=== PATIENT | female | born 1995 | race Caucasian/White ===

== ENCOUNTER 2017-02-05 13:42 | Observation (INO) | payer MEDICAID ==
[~2017-02-05] VITALS: Ht 166.4 cm; Wt 110.0 kg
[~2017-02-05 13:42] MED LIST: RANI75TA12 PO
[2017-02-05 14:21] VITALS: BP 116/63
[2017-02-05] MEDS ORDERED: D5%-LACTATED RINGERS 1,000 ML IV SCH ×2 (14:30→14:59)
[2017-02-05 14:49] LABS: HEMOGLOBIN 10.4 g/dL (11.7-16.4)
[2017-02-05] MEDS ORDERED: PREN1TAB60 PO (15:04)
[2017-02-05 16:41] LABS: DAU SCREEN DISCLAIMER
== END 2017-02-05 17:50 | disposition home or self-care (01) ==
LOC: LDOP 13:42 → LDIP 14:15
PROVIDERS: ADMIT Obstetrics & Gynecology Gynecology; ATTEND Obstetrics & Gynecology Gynecology
DX: O26.893 Other specified pregnancy related conditions, third trimester (principal); O99.013 Anemia complicating pregnancy, third trimester; O99.343 Other mental disorders complicating pregnancy, third trimester; F32.9 Major depressive disorder, single episode, unspecified; Z3A.35 35 weeks gestation of pregnancy; W18.30XA Fall on same level, unspecified, initial encounter; Y93.89 Activity, other specified; Y92.89 Other specified places as the place of occurrence of the external cause; Y99.8 Other external cause status
CPT/HCPCS: 36415; 59025; 76815; 80307; 81001; 85025; 87086; 96360; 96361; 99211; G0378; G0463; J7121

== ENCOUNTER 2017-03-02 05:14 | Inpatient (IN) | payer MEDICAID ==
[~2017-03-02] VITALS: Ht 165.1 cm; Wt 113.0 kg
[~2017-03-02 05:14] MED LIST changes: +PREN1TAB60 PO
[2017-03-02] MEDS ORDERED: OXYTOCIN 30U/ 0.9% NaCL 500ML 500 ML IV PRN (05:15)
[2017-03-02] MEDS: D5%-LACTATED RINGERS 1,000 ML IV SCH ×2 (05:15→13:15)
[2017-03-02] MEDS ORDERED: OXYTOCIN 30U/ 0.9% NaCL 500ML 500 ML IV ONE (05:15)
[2017-03-02] MEDS ORDERED: NEWBORN KIT ONE ×2 (05:18→12:10)
[2017-03-02] MEDS ORDERED: OXYTOCIN 30U/ 0.9% NaCL 500ML 500 ML ONE (05:18)
[2017-03-02] MEDS ORDERED: CALCIUM CARBONATE 500 MG TAB.CHEW PO PRN ×2 (05:30→13:30)
[2017-03-02] MEDS ORDERED: ONDANSETRON 2MG/ML, 2ML IVPush PRN ×2 (05:30→13:30)
[2017-03-02] MEDS ORDERED: FENTANYL PF 100 MCG/2ML IVPush PRN (05:30)
[2017-03-02] MEDS ORDERED: TERBUTALINE 1 MG/ML, 1ML IVPush PRN (05:30)
[2017-03-02] MEDS ORDERED: FENTANYL PF 100 MCG/2ML IV PRN ×2 (05:30→13:30)
[2017-03-02 05:51] VITALS: BP 122/84
[2017-03-02 06:04] LABS: HEMOGLOBIN 11.3 g/dL (11.7-16.4)
[2017-03-02 07:28] VITALS: BP 118/75
[2017-03-02] MEDS ORDERED: LIDOCAINE 1%, 20ML ONE (10:08)
[2017-03-02] MEDS ORDERED: MISOPROSTOL 200 MCG TABLET ONE (10:08)
[2017-03-02] MEDS ORDERED: FENTANYL PF 100 MCG/2ML ONE ×3 (10:08→12:09)
[2017-03-02] MEDS: LACTATED RINGERS 1,000 ML IV SCH ×6 (10:40→23:03)
[2017-03-02] MEDS ORDERED: BUPIVACAINE/PF 0.25% ONE (11:11)
[2017-03-02] MEDS ORDERED: FENTANYL/BUPIV./NS/PF 250 ML EPIDCONT ONE (11:11)
[2017-03-02] MEDS ORDERED: LACTATED RINGERS 1,000 ML IV SCH (11:54)
[2017-03-02] MEDS ORDERED: FENTANYL/BUPIV./NS/PF 250 ML EPIDCONT SCH (11:54)
[2017-03-02] MEDS ORDERED: EPHEDRINE 50 MG/ML, 1ML IVPush PRN ×2 (12:00→13:30)
[2017-03-02] MEDS ORDERED: LACTATED RINGERS 1,000 ML IVBOLUS PRN (12:00)
[2017-03-02] MEDS ORDERED: NALOXONE 0.4 MG/ML, 1ML IVPush PRN (12:00)
[2017-03-02] MEDS ORDERED: TERBUTALINE 1 MG/ML, 1ML ONE (12:04)
[2017-03-02] MEDS ORDERED: DEXAMETHASONE 4 MG/ML, 1ML ONE (12:11)
[2017-03-02] MEDS ORDERED: CEFAZOLIN 1,000 MG ONE (12:11)
[2017-03-02] MEDS ORDERED: KETOROLAC 30 MG/1 ML ONE (12:11)
[2017-03-02] MEDS ORDERED: ONDANSETRON 2MG/ML, 2ML ONE (12:11)
[2017-03-02] MEDS ORDERED: EPHEDRINE 50 MG/ML, 1ML ONE (12:11)
[2017-03-02] MEDS ORDERED: METOCLOPRAMIDE 5 MG/ML, 2ML ONE ×2 (12:11→13:27)
[2017-03-02] MEDS ORDERED: PHENYLEPHRINE 10 MG/ML ONE (12:11)
[2017-03-02] MEDS ORDERED: OXYTOCIN 10 UNITS/ML, 1ML ONE (12:11)
[2017-03-02] MEDS: OXYTOCIN 30U/ 0.9% NaCL 500ML 500 ML IV SCH ×2 (13:03→23:03)
[2017-03-02] MEDS ORDERED: OXYcodone/APAP 5/325MG TABLET PO PRN (13:30)
[2017-03-02] MEDS ORDERED: OXYcodone 5 MG/5 ML ORAL.SOL UDC PO PRN (13:30)
[2017-03-02] MEDS ORDERED: MIDAZOLAM 1 MG/ML, 2ML IV PRN (13:30)
[2017-03-02] MEDS ORDERED: HYDROcodone/APAP 7.5-325MG/15ML UDC PO PRN (13:30)
[2017-03-02] MEDS ORDERED: ALBUTEROL/IPRATROPIUM 2.5MG/0.5MG, 3 ML NPPB PRN (13:30)
[2017-03-02] MEDS ORDERED: morphine SULFATE 10 MG/ML, 1ML IVPush PRN (13:30)
[2017-03-02] MEDS ORDERED: MEPERIDINE/PF 25MG/0.5ML IVPush PRN (13:30)
[2017-03-02] MEDS ORDERED: ONDANSETRON 2MG/ML, 2ML IV PRN (13:30)
[2017-03-02] MEDS ORDERED: HYDROmorphone 1 MG/ML, 1ML IV PRN (13:30)
[2017-03-02] MEDS ORDERED: RHOGAM FROM BLOOD BANK 1 NOTE EA IM/IV ONE (13:30)
[2017-03-02] MEDS ORDERED: SIMETHICONE 80 MG CHEW TAB PO PRN (13:30)
[2017-03-02] MEDS ORDERED: DIPH,PERTUSS(ACELL),TET VAC/PF NC IM-VACC PRN (13:30)
[2017-03-02] MEDS ORDERED: MEASLES,MUMPS&RUBELLA VACC/PF 0.5 ML SQ-VACC PRN (13:30)
[2017-03-02] MEDS ORDERED: MISOPROSTOL 200 MCG TABLET PR PRN (13:30)
[2017-03-02] MEDS ORDERED: PROMETHAZINE 25 MG/ML, 1ML IV PRN (13:30)
[2017-03-02] MEDS: OXYcodone IR 5MG TABLET PO PRN ×2 (15:48→21:04)
[2017-03-02 16:00] VITALS: BP 98/65
[2017-03-02] MEDS: KETOROLAC 30 MG/1 ML IV SCH (18:08)
[2017-03-02 20:00] VITALS: BP 109/57
[2017-03-02 23:45] VITALS: BP 97/55
[2017-03-03] MEDS: KETOROLAC 30 MG/1 ML IV SCH ×5 (00:44→20:00)
[2017-03-03] MEDS: OXYcodone IR 5MG TABLET PO PRN ×6 (00:44→22:32)
[2017-03-03] MEDS: LACTATED RINGERS 1,000 ML IV SCH ×2 (02:29→02:31)
[2017-03-03] MEDS: OXYTOCIN 30U/ 0.9% NaCL 500ML 500 ML IV SCH (02:36)
[2017-03-03 05:02] VITALS: BP 94/55
[2017-03-03 08:10] VITALS: BP 100/53
[2017-03-03] MEDS: DOCUSATE 100 MG CAPSULE PO PRN ×2 (09:11→20:00)
[2017-03-03] MEDS: PRENATAL VIT/IRON/FA 1 EACH TABLET PO SCH (09:11)
[2017-03-03 20:50] VITALS: BP 94/54
[2017-03-04] MEDS: KETOROLAC 30 MG/1 ML IV SCH ×2 (01:56→07:50)
[2017-03-04] MEDS: LACTATED RINGERS 1,000 ML IV SCH ×4 (05:03→06:39)
[2017-03-04] MEDS: OXYTOCIN 30U/ 0.9% NaCL 500ML 500 ML IV SCH ×2 (05:03→06:40)
[2017-03-04] MEDS: OXYcodone IR 5MG TABLET PO PRN ×4 (05:54→19:21)
[2017-03-04 07:35] VITALS: BP 108/64
[2017-03-04] MEDS: DOCUSATE 100 MG CAPSULE PO PRN ×2 (07:50→19:21)
[2017-03-04] MEDS: PRENATAL VIT/IRON/FA 1 EACH TABLET PO SCH (09:00)
[2017-03-04 11:42] LABS: HEMOGLOBIN 9.5 g/dL (11.7-16.4)
[2017-03-04] MEDS: IBUPROFEN 600 MG TABLET PO PRN ×2 (14:44→21:33)
[2017-03-04 20:40] VITALS: BP 99/60
[2017-03-05] MEDS: OXYcodone IR 5MG TABLET PO PRN ×5 (01:18→19:52)
[2017-03-05] MEDS: IBUPROFEN 600 MG TABLET PO PRN ×3 (06:10→22:44)
[2017-03-05 06:40] VITALS: BP 104/57
[2017-03-05] MEDS: DOCUSATE 100 MG CAPSULE PO PRN ×2 (09:29→19:52)
[2017-03-05] MEDS: PRENATAL VIT/IRON/FA 1 EACH TABLET PO SCH (09:29)
[2017-03-06] MEDS: OXYcodone IR 5MG TABLET PO PRN ×4 (00:30→16:13)
[2017-03-06 08:00] VITALS: BP 111/66
[2017-03-06] MEDS: PRENATAL VIT/IRON/FA 1 EACH TABLET PO SCH (08:12)
[2017-03-06] MEDS: DOCUSATE 100 MG CAPSULE PO PRN (08:12)
[2017-03-06] MEDS: IBUPROFEN 600 MG TABLET PO PRN ×2 (08:12→14:43)
[2017-03-06] MEDS ORDERED: OXYC-302 PO (14:48)
[2017-03-06] MEDS ORDERED: IBUP-1222 PO (14:49)
== END 2017-03-06 18:51 | disposition home or self-care (01) | DRG 766 ==
LOC: LDIP 05:14 → 2NW 15:24
PROVIDERS: ADMIT Obstetrics & Gynecology Gynecology; ATTEND Obstetrics & Gynecology Gynecology
PROC: 10D00Z1 Extraction of Products of Conception, Low, Open Approach (ICD-10-PCS; principal; 2017-03-02)
DX: O76 Abnormality in fetal heart rate and rhythm complicating labor and delivery (principal); O34.211 Maternal care for low transverse scar from previous cesarean delivery; O69.81X0 Labor and delivery complicated by cord around neck, without compression, not applicable or unspecified; O69.89X0 Labor and delivery complicated by other cord complications, not applicable or unspecified; O36.63X0 Maternal care for excessive fetal growth, third trimester, not applicable or unspecified; O61.8 Other failed induction of labor; Z3A.39 39 weeks gestation of pregnancy; Z80.41 Family history of malignant neoplasm of ovary; Z37.0 Single live birth; Z82.49 Family history of ischemic heart disease and other diseases of the circulatory system; Z83.3 Family history of diabetes mellitus; Z90.89 Acquired absence of other organs; Z83.49 Family history of other endocrine, nutritional and metabolic diseases
CPT/HCPCS: 36415; 82803; 85025; 86850; 86900; J0690; J1100; J1885; J2405; J3010; J2370; J2590; J2765; J3105; J7120

== ENCOUNTER 2017-10-28 16:47 | Emergency (ER) | payer MEDICAID ==
[~2017-10-28] VITALS: Ht 165.1 cm; Wt 106.9 kg
[~2017-10-28 16:47] MED LIST changes: +IBUP-1222 PO; +OXYC-302 PO
[2017-10-28] MEDS ORDERED: SODIUM CHLORIDE 0.9% 1,000ML IVBOLUS ONE (17:30)
[2017-10-28] MEDS ORDERED: SODIUM CHLORIDE FLUSH 10ML SYR IVF ONE (17:30)
[2017-10-28 18:06] LABS: BLOOD UREA NITROGEN 10 mg/dL (7-18)
[2017-10-28 18:19] LABS: HEMATOCRIT 41.2 % (34.6-47.8); HEMOGLOBIN 13.1 g/dL (11.7-16.4); WHITE BLOOD COUNT 9.7 x10^3/uL (3.4-10)
[2017-10-28 20:33] VITALS: BP 106/65
== END 2017-10-28 20:37 | disposition home or self-care (01) ==
LOC: ED 19:06
DX: O34.81 Maternal care for other abnormalities of pelvic organs, first trimester (principal); N83.202 Unspecified ovarian cyst, left side; Z3A.01 Less than 8 weeks gestation of pregnancy
CPT/HCPCS: 36415; 76801; 80048; 81001; 82040; 84702; 85025; 87086; 96360; 96361; 99285; J7030

== ENCOUNTER 2017-11-06 15:51 | Emergency (ER) | payer MEDICAID ==
[~2017-11-06] VITALS: Ht 167.6 cm; Wt 106.0 kg
[2017-11-06 16:54] LABS: HEMATOCRIT 39.2 % (34.6-47.8); WHITE BLOOD COUNT 8.7 x10^3/uL (3.4-10)
[2017-11-06 17:06] LABS: ASPARTATE AMINO TRANSFERASE 13 U/L (15-37); BLOOD UREA NITROGEN 8 mg/dL (7-18)
[2017-11-06 17:23] LABS: IS PT STATUS REG ER OR PRE ER? YES
[2017-11-06 18:43] VITALS: BP 142/86
== END 2017-11-06 18:48 | disposition home or self-care (01) ==
LOC: ED 18:08
DX: O26.891 Other specified pregnancy related conditions, first trimester (principal); R10.33 Periumbilical pain; R07.2 Precordial pain; Z3A.01 Less than 8 weeks gestation of pregnancy
CPT/HCPCS: 36415; 71010; 80053; 81003; 83690; 83880; 84484; 84702; 85025; 93005; 99285

== ENCOUNTER 2017-12-26 18:56 | Emergency (ER) | payer MEDICAID ==
[~2017-12-26] VITALS: Ht 165.1 cm; Wt 104.8 kg
[2017-12-26 19:56] LABS: BASOPHILS # (AUTO) 0.03 x10^3/uL (0-0.1); BASOPHILS % (AUTO) 0 % (0-1); EOSINOPHILS # (AUTO) 0.04 x10^3/uL (0-0.4); EOSINOPHILS % (AUTO) 0 % (1-7); LYMPHOCYTES # (AUTO) 2.11 x10^3/uL (1-3.4); LYMPHOCYTES % (AUTO) 21 % (22-44); MD NO; MEAN CORPUSCULAR HGB CONC 32.7 g/dL (32.4-35.8); MEAN CORPUSCULAR VOLUME 82.6 fL (80-100); MEAN PLATELET VOLUME 6.8 fL (7.4-10.4); MONOCYTES # (AUTO) 0.38 x10^3/uL (0.2-0.8); MONOCYTES % (AUTO) 4 % (2-9); NEUTROPHILS # (AUTO) 7.28 x10^3/uL (1.8-6.8); NEUTROPHILS % (AUTO) 74 % (42-75); PLATELET COUNT 390 x10^3/uL (130-400); RED BLOOD COUNT 5.02 x10^6/uL (3.82-5.3); RED CELL DISTRIBUTION WIDTH 14.7 % (9.6-15.2)
[2017-12-26 20:07] LABS: ALBUMIN 2.9 g/dL (3.4-5.0); ANION GAP 7 mmol/L (5-15); CALCIUM 8.3 mg/dL (8.5-10.1); CHLORIDE 107 mmol/L (98-107); CREATININE 0.64 mg/dL (0.55-1.02)
[2017-12-26 21:20] LABS: CULTURE INDICATED? YES; MICROSCOPIC INDICATED
[2017-12-26 22:23] VITALS: BP 135/93
== END 2017-12-26 22:25 | disposition home or self-care (01) ==
LOC: ED 21:51
DX: O20.0 Threatened abortion (principal); N30.80 Other cystitis without hematuria; Z3A.13 13 weeks gestation of pregnancy
CPT/HCPCS: 36415; 76801; 80048; 81001; 82040; 84702; 85025; 86901; 87086; 99285

== ENCOUNTER 2018-01-13 13:33 | Emergency (ER) | payer MEDICAID ==
[~2018-01-13] VITALS: Ht 165.1 cm; Wt 104.1 kg
[2018-01-13] MEDS ORDERED: ONDANSETRON 2MG/ML, 2ML ONE (14:57)
[2018-01-13] MEDS ORDERED: MORPHINE SULFATE 4 MG/ML, 1ML ONE (14:57)
[2018-01-13] MEDS ORDERED: MORPHINE SULFATE 4 MG/ML, 1ML IVPush PRN (15:00)
[2018-01-13] MEDS ORDERED: ONDANSETRON 2MG/ML, 2ML IVPush ONE (15:00)
[2018-01-13] MEDS ORDERED: SODIUM CHLORIDE FLUSH 10ML SYR IVF ONE (15:00)
[2018-01-13] MEDS ORDERED: SODIUM CHLORIDE 0.9% 1,000ML IVBOLUS ONE (15:00)
[2018-01-13 15:05] LABS: BASOPHILS # (AUTO) 0.02 x10^3/uL (0-0.1); BASOPHILS % (AUTO) 0 % (0-1); EOSINOPHILS # (AUTO) 0.01 x10^3/uL (0-0.4); EOSINOPHILS % (AUTO) 0 % (1-7); LYMPHOCYTES % (AUTO) 16 % (22-44); MD NO; MEAN CORPUSCULAR HEMOGLOBIN 27.2 pg (27.0-34.8); MEAN CORPUSCULAR HGB CONC 33.3 g/dL (32.4-35.8); MEAN CORPUSCULAR VOLUME 81.6 fL (80-100); MEAN PLATELET VOLUME 7.2 fL (7.4-10.4); MONOCYTES # (AUTO) 0.41 x10^3/uL (0.2-0.8); MONOCYTES % (AUTO) 4 % (2-9); NEUTROPHILS # (AUTO) 8.24 x10^3/uL (1.8-6.8); NEUTROPHILS % (AUTO) 79 % (42-75); PLATELET COUNT 352 x10^3/uL (130-400); RED BLOOD COUNT 4.91 x10^6/uL (3.82-5.3); RED CELL DISTRIBUTION WIDTH 14.6 % (9.6-15.2)
[2018-01-13 15:16] LABS: ALANINE AMINOTRANSFERASE 15 U/L (12-78); ALBUMIN 2.8 g/dL (3.4-5.0); ANION GAP 7 mmol/L (5-15); CALCIUM 8.9 mg/dL (8.5-10.1); CHLORIDE 108 mmol/L (98-107); CREATININE 0.68 mg/dL (0.55-1.02)
[2018-01-13 15:33] LABS: ALKALINE PHOSPHATASE 96 U/L (45-117); BILIRUBIN,TOTAL 0.2 mg/dL (0.2-1.0); TOTAL PROTEIN 7.4 g/dL (6.4-8.2)
[2018-01-13 16:11] LABS: MICROSCOPIC INDICATED
[2018-01-13 16:23] LABS: CULTURE INDICATED? YES
[2018-01-13 16:52] LABS: MICROSCOPIC NOT IND
[2018-01-13 16:57] LABS: CULTURE INDICATED? NO
[2018-01-13 17:24] VITALS: BP 119/63
== END 2018-01-13 17:39 | disposition home or self-care (01) ==
LOC: ED 16:36
DX: O26.892 Other specified pregnancy related conditions, second trimester (principal); R10.2 Pelvic and perineal pain; Z90.49 Acquired absence of other specified parts of digestive tract; Z3A.17 17 weeks gestation of pregnancy
CPT/HCPCS: 36415; 76815; 80053; 81001; 81003; 84703; 85025; 87086; 96361; 96374; 96375; 99285; J2405; J7030

== ENCOUNTER 2018-01-17 15:28 | Emergency (ER) | payer MEDICAID ==
[~2018-01-17] VITALS: Ht 165.1 cm; Wt 105.0 kg
[2018-01-17 15:29] VITALS: BP 134/84
[2018-01-17 16:04] LABS: ALBUMIN 2.9 g/dL (3.4-5.0); ANION GAP 10 mmol/L (5-15); CALCIUM 8.8 mg/dL (8.5-10.1); CHLORIDE 107 mmol/L (98-107)
[2018-01-17 16:06] LABS: BASOPHILS # (AUTO) 0.04 x10^3/uL (0-0.1); BASOPHILS % (AUTO) 0 % (0-1); EOSINOPHILS # (AUTO) 0.01 x10^3/uL (0-0.4); EOSINOPHILS % (AUTO) 0 % (1-7); LYMPHOCYTES # (AUTO) 1.75 x10^3/uL (1-3.4); LYMPHOCYTES % (AUTO) 18 % (22-44); MD NO; MEAN CORPUSCULAR HEMOGLOBIN 27.1 pg (27.0-34.8); MEAN CORPUSCULAR HGB CONC 33.1 g/dL (32.4-35.8); MEAN CORPUSCULAR VOLUME 81.9 fL (80-100); MEAN PLATELET VOLUME 7.4 fL (7.4-10.4); MONOCYTES # (AUTO) 0.27 x10^3/uL (0.2-0.8); MONOCYTES % (AUTO) 3 % (2-9); NEUTROPHILS # (AUTO) 7.93 x10^3/uL (1.8-6.8); NEUTROPHILS % (AUTO) 79 % (42-75); PLATELET COUNT 362 x10^3/uL (130-400); RED BLOOD COUNT 4.89 x10^6/uL (3.82-5.3); RED CELL DISTRIBUTION WIDTH 14.7 % (9.6-15.2)
== END 2018-01-17 19:15 | disposition other institution (70) ==
LOC: ED 19:09
DX: O26.892 Other specified pregnancy related conditions, second trimester (principal); Z3A.17 17 weeks gestation of pregnancy; W01.0XXA Fall on same level from slipping, tripping and stumbling without subsequent striking against object, initial encounter; Y93.89 Activity, other specified; Y99.8 Other external cause status; Y92.89 Other specified places as the place of occurrence of the external cause
CPT/HCPCS: 36415; 76815; 80048; 82040; 85025; 99285

== ENCOUNTER 2018-02-04 15:32 | Emergency (ER) | payer MEDICAID ==
[~2018-02-04] VITALS: Ht 165.1 cm; Wt 105.3 kg
[2018-02-04 15:35] VITALS: BP 129/85
== END 2018-02-04 16:19 | disposition home or self-care (01) ==
LOC: ED 16:00
DX: O26.892 Other specified pregnancy related conditions, second trimester (principal); R10.31 Right lower quadrant pain; H92.02 Otalgia, left ear; Z90.49 Acquired absence of other specified parts of digestive tract; Z3A.19 19 weeks gestation of pregnancy
CPT/HCPCS: 99284

== ENCOUNTER 2018-02-14 14:44 | Outpatient (CLI) | payer MEDICAID ==
[~2018-02-14] VITALS: Ht 166.4 cm; Wt 109.1 kg
[2018-02-14 15:04] VITALS: BP 105/62
== END 2018-02-14 16:27 | disposition still patient (30) ==
LOC: LDOP 14:44
PROVIDERS: ATTEND Obstetrics & Gynecology Gynecology
DX: O26.892 Other specified pregnancy related conditions, second trimester (principal); R10.9 Unspecified abdominal pain; Z3A.00 Weeks of gestation of pregnancy not specified
CPT/HCPCS: 59025; 99211; G0463

== ENCOUNTER 2018-02-14 15:47 | Emergency (ER) | payer MEDICAID ==
[~2018-02-14] VITALS: Ht 167.6 cm; Wt 110.0 kg
[2018-02-14 16:29] LABS: BASOPHILS # (AUTO) 0.04 x10^3/uL (0-0.1); BASOPHILS % (AUTO) 0 % (0-1); EOSINOPHILS # (AUTO) 0.01 x10^3/uL (0-0.4); EOSINOPHILS % (AUTO) 0 % (1-7); LYMPHOCYTES # (AUTO) 1.67 x10^3/uL (1-3.4); LYMPHOCYTES % (AUTO) 16 % (22-44); MD NO; MEAN CORPUSCULAR HEMOGLOBIN 26.8 pg (27.0-34.8); MEAN CORPUSCULAR HGB CONC 32.9 g/dL (32.4-35.8); MEAN CORPUSCULAR VOLUME 81.4 fL (80-100); MEAN PLATELET VOLUME 7.2 fL (7.4-10.4); MONOCYTES # (AUTO) 0.42 x10^3/uL (0.2-0.8); MONOCYTES % (AUTO) 4 % (2-9); NEUTROPHILS # (AUTO) 8.21 x10^3/uL (1.8-6.8); NEUTROPHILS % (AUTO) 79 % (42-75); PLATELET COUNT 372 x10^3/uL (130-400); RED BLOOD COUNT 4.38 x10^6/uL (3.82-5.3); RED CELL DISTRIBUTION WIDTH 15.2 % (9.6-15.2)
[2018-02-14 16:34] LABS: ALBUMIN 2.6 g/dL (3.4-5.0); ANION GAP 6 mmol/L (5-15); CALCIUM 8.5 mg/dL (8.5-10.1); CHLORIDE 108 mmol/L (98-107)
[2018-02-14 16:38] LABS: ALANINE AMINOTRANSFERASE 15 U/L (12-78); ALKALINE PHOSPHATASE 87 U/L (45-117); BILIRUBIN,TOTAL 0.2 mg/dL (0.2-1.0); CREATININE 0.76 mg/dL (0.55-1.02); TOTAL PROTEIN 6.7 g/dL (6.4-8.2)
[2018-02-14 18:07] VITALS: BP 103/61
== END 2018-02-14 18:09 | disposition home or self-care (01) ==
LOC: ED 16:09
DX: O26.892 Other specified pregnancy related conditions, second trimester (principal); O99.612 Diseases of the digestive system complicating pregnancy, second trimester; Z3A.20 20 weeks gestation of pregnancy
CPT/HCPCS: 36415; 76700; 80053; 83690; 85025; 99285

== ENCOUNTER 2018-03-22 17:22 | Outpatient (CLI) | payer MEDICAID ==
[~2018-03-22] VITALS: Ht 165.1 cm; Wt 106.3 kg
[2018-03-22 18:42] LABS: AMPHETAMINE SCREEN, URINE Negative (Negative); BARBITURATE SCREEN, URINE Negative (Negative); BENZODIAZEPINE SCREEN, URINE Negative (Negative); CANNABINOID SCREEN, URINE Negative (Negative); COCAINE SCREEN, URINE Negative (Negative); METHADONE SCREEN, URINE Negative (Negative); OPIATE SCREEN, URINE Negative (Negative)
== END 2018-03-22 19:21 | disposition home or self-care (01) ==
LOC: LDOP 17:22
PROVIDERS: ATTEND Obstetrics & Gynecology Gynecology
DX: O36.8120 Decreased fetal movements, second trimester, not applicable or unspecified (principal); Z3A.26 26 weeks gestation of pregnancy
CPT/HCPCS: 59025; 80307; 99211; G0463

== ENCOUNTER 2018-04-21 13:44 | Emergency (ER) | payer MEDICAID ==
[~2018-04-21] VITALS: Ht 167.6 cm; Wt 108.2 kg
[2018-04-21 13:45] VITALS: BP 109/73
[2018-04-21] MEDS ORDERED: PROPARACAINE OPHTH 0.5%, 15ML ONE (14:01)
[2018-04-21] MEDS ORDERED: FLUORESCEIN OPHTHALMIC 1 MG STRIP EACHEYE ONE (14:30)
[2018-04-21] MEDS ORDERED: PROPARACAINE OPHTH 0.5%, 15ML EACHEYE ONE (14:30)
== END 2018-04-21 14:30 | disposition home or self-care (01) ==
LOC: ED 14:20
DX: S05.01XA Injury of conjunctiva and corneal abrasion without foreign body, right eye, initial encounter (principal); X58.XXXA Exposure to other specified factors, initial encounter; Y93.89 Activity, other specified; Y92.89 Other specified places as the place of occurrence of the external cause; Y99.8 Other external cause status
CPT/HCPCS: 99283

== ENCOUNTER 2018-05-10 16:28 | Outpatient (CLI) | payer MEDICAID ==
[2018-05-10 16:39] VITALS: BP 108/71
[2018-05-10] MEDS ORDERED: TERBUTALINE 1 MG/ML, 1ML ONE (17:09)
[2018-05-10] MEDS ORDERED: TERBUTALINE 1 MG/ML, 1ML SQ ONE (17:30)
[2018-05-10 17:31] LABS: MICROSCOPIC INDICATED
[2018-05-10 17:32] LABS: CULTURE INDICATED? YES
== END 2018-05-10 19:05 | disposition home or self-care (01) ==
LOC: LDOP 16:28
PROVIDERS: ATTEND Obstetrics & Gynecology Gynecology
DX: O36.8130 Decreased fetal movements, third trimester, not applicable or unspecified (principal); Z3A.33 33 weeks gestation of pregnancy
CPT/HCPCS: 36415; 59025; 81001; 82731; 87086; 99211; J3105; G0463

== ENCOUNTER 2018-06-04 14:49 | Observation (INO) | payer MEDICAID ==
[~2018-06-04] VITALS: Ht 165.1 cm; Wt 109.0 kg
[2018-06-04 15:25] VITALS: BP 111/66
[2018-06-04] MEDS ORDERED: D5%-LACTATED RINGERS 1,000 ML IV SCH (16:06)
[2018-06-04 16:30] LABS: BASOPHILS # (AUTO) 0.04 x10^3/uL (0-0.1); BASOPHILS % (AUTO) 0 % (0-1); EOSINOPHILS # (AUTO) 0.04 x10^3/uL (0-0.4); EOSINOPHILS % (AUTO) 0 % (1-7); LYMPHOCYTES # (AUTO) 1.46 x10^3/uL (1-3.4); LYMPHOCYTES % (AUTO) 15 % (22-44); MD NO; MEAN CORPUSCULAR HEMOGLOBIN 23.7 pg (27.0-34.8); MEAN CORPUSCULAR HGB CONC 32.2 g/dL (32.4-35.8); MEAN CORPUSCULAR VOLUME 73.5 fL (80-100); MEAN PLATELET VOLUME 7.9 fL (7.4-10.4); MONOCYTES # (AUTO) 0.45 x10^3/uL (0.2-0.8); MONOCYTES % (AUTO) 5 % (2-9); NEUTROPHILS % (AUTO) 79 % (42-75); PLATELET COUNT 315 x10^3/uL (130-400); RED BLOOD COUNT 4.47 x10^6/uL (3.82-5.3); RED CELL DISTRIBUTION WIDTH 15.7 % (9.6-15.2)
[2018-06-04] MEDS ORDERED: LACTATED RINGERS 1,000 ML IVBOLUS ONE (19:00)
[2018-06-04 20:07] LABS: AMPHETAMINE SCREEN, URINE Negative (Negative); BARBITURATE SCREEN, URINE Negative (Negative); BENZODIAZEPINE SCREEN, URINE Negative (Negative); CANNABINOID SCREEN, URINE Negative (Negative); COCAINE SCREEN, URINE Negative (Negative); METHADONE SCREEN, URINE Negative (Negative); OPIATE SCREEN, URINE Negative (Negative)
[2018-06-04 20:10] LABS: MICROSCOPIC INDICATED
[2018-06-04 20:11] LABS: CULTURE INDICATED? YES
== END 2018-06-04 20:50 | disposition home or self-care (01) ==
LOC: LDOP 14:49 → LDIP 16:44
PROVIDERS: ADMIT Obstetrics & Gynecology Gynecology; ATTEND Obstetrics & Gynecology Gynecology
DX: O99.343 Other mental disorders complicating pregnancy, third trimester (principal); F32.9 Major depressive disorder, single episode, unspecified; Z3A.36 36 weeks gestation of pregnancy; Z79.899 Other long term (current) drug therapy
CPT/HCPCS: 36415; 59025; 80307; 81001; 85025; 87086; 96360; 96361; G0378; J7120; J7121

== ENCOUNTER 2018-06-12 21:14 | Outpatient (CLI) | payer MEDICAID ==
[~2018-06-12] VITALS: Ht 165.1 cm; Wt 108.6 kg
== END 2018-06-12 22:25 | disposition home or self-care (01) ==
LOC: LDOP 21:14
PROVIDERS: ATTEND Obstetrics & Gynecology Gynecology
DX: O42.92 Full-term premature rupture of membranes, unspecified as to length of time between rupture and onset of labor (principal); Z3A.37 37 weeks gestation of pregnancy
CPT/HCPCS: 59025; 89060; 99211; G0463; Q0114

== ENCOUNTER 2018-06-13 14:36 | Inpatient (IN) | payer MEDICAID ==
[~2018-06-13] VITALS: Ht 165.1 cm; Wt 110.0 kg
[2018-06-13] MEDS ORDERED: FENTANYL PF 100 MCG/2ML IV PRN (15:00)
[2018-06-13] MEDS ORDERED: TERBUTALINE 1 MG/ML, 1ML IVPush PRN (15:00)
[2018-06-13] MEDS ORDERED: FENTANYL PF 100 MCG/2ML IVPush PRN (15:00)
[2018-06-13] MEDS ORDERED: OXYTOCIN 30U/ 0.9% NaCL 500ML 500 ML IV ONE (15:00)
[2018-06-13] MEDS: D5%-LACTATED RINGERS 1,000 ML IV SCH ×2 (15:00→23:00)
[2018-06-13] MEDS ORDERED: ONDANSETRON 2MG/ML, 2ML IVPush PRN ×2 (15:00→19:00)
[2018-06-13] MEDS ORDERED: LIDOCAINE/PF 1%, 30ML ONE ×2 (15:18→15:32)
[2018-06-13] MEDS ORDERED: FENTANYL PF 100 MCG/2ML ONE ×3 (15:19→21:45)
[2018-06-13] MEDS: LACTATED RINGERS 1,000 ML IV SCH ×5 (15:19→23:27)
[2018-06-13] MEDS ORDERED: OXYTOCIN 30U/ 0.9% NaCL 500ML 0 ML ONE (15:19)
[2018-06-13] MEDS ORDERED: MISOPROSTOL 200 MCG TABLET ONE ×2 (15:19→15:32)
[2018-06-13] MEDS ORDERED: NEWBORN KIT ONE (15:31)
[2018-06-13] MEDS ORDERED: OXYTOCIN 30U/ 0.9% NaCL 500ML 500 ML ONE (15:32)
[2018-06-13 15:36] LABS: BASOPHILS # (AUTO) 0.03 x10^3/uL (0-0.1); BASOPHILS % (AUTO) 0 % (0-1); EOSINOPHILS # (AUTO) 0.01 x10^3/uL (0-0.4); EOSINOPHILS % (AUTO) 0 % (1-7); LYMPHOCYTES # (AUTO) 1.69 x10^3/uL (1-3.4); LYMPHOCYTES % (AUTO) 16 % (22-44); MD NO; MEAN CORPUSCULAR HEMOGLOBIN 24.1 pg (27.0-34.8); MEAN CORPUSCULAR HGB CONC 32.7 g/dL (32.4-35.8); MEAN CORPUSCULAR VOLUME 73.5 fL (80-100); MEAN PLATELET VOLUME 8.2 fL (7.4-10.4); MONOCYTES # (AUTO) 0.53 x10^3/uL (0.2-0.8); MONOCYTES % (AUTO) 5 % (2-9); NEUTROPHILS # (AUTO) 8.63 x10^3/uL (1.8-6.8); NEUTROPHILS % (AUTO) 79 % (42-75); PLATELET COUNT 350 x10^3/uL (130-400); RED BLOOD COUNT 4.87 x10^6/uL (3.82-5.3); RED CELL DISTRIBUTION WIDTH 16.2 % (9.6-15.2)
[2018-06-13] MEDS ORDERED: FENTANYL/BUPIV./NS/PF 250 ML EPIDCONT SCH ×2 (15:41→18:51)
[2018-06-13] MEDS ORDERED: FENTANYL PF 500 MCG, BUPIVACAINE/PF 0.5%, 30ML 62.5 ML in SODIUM CHLORIDE 0.9% 177.5 ML EPIDCONT SCH (16:30)
[2018-06-13] MEDS ORDERED: BUPIVACAINE 0.25% ONE (16:33)
[2018-06-13] MEDS ORDERED: SODIUM CITRATE/CITRIC ACID 30 ML UDC ONE ×2 (16:59→19:41)
[2018-06-13] MEDS ORDERED: SODIUM CITRATE/CITRIC ACID 30 ML UDC PO ONE ×2 (17:00→20:00)
[2018-06-13 17:59] LABS: AMPHETAMINE SCREEN, URINE Negative (Negative); BARBITURATE SCREEN, URINE Negative (Negative); BENZODIAZEPINE SCREEN, URINE Negative (Negative); CANNABINOID SCREEN, URINE Negative (Negative); COCAINE SCREEN, URINE Negative (Negative); METHADONE SCREEN, URINE Negative (Negative); OPIATE SCREEN, URINE Negative (Negative)
[2018-06-13] MEDS ORDERED: LACTATED RINGERS 1,000 ML IV SCH (18:51)
[2018-06-13] MEDS ORDERED: EPHEDRINE 50 MG/ML, 1ML IVPush PRN (19:00)
[2018-06-13] MEDS ORDERED: LACTATED RINGERS 1,000 ML INTUTE SCH (19:00)
[2018-06-13] MEDS ORDERED: LACTATED RINGERS 1,000 ML INTUTE PRN (19:00)
[2018-06-13] MEDS ORDERED: LACTATED RINGERS 1,000 ML IVBOLUS PRN (19:00)
[2018-06-13] MEDS ORDERED: METOCLOPRAMIDE 5 MG/ML, 2ML ONE (19:31)
[2018-06-13] MEDS ORDERED: OXYTOCIN 30U/ 0.9% NaCL 500ML 500 ML IV SCH (19:38)
[2018-06-13] MEDS ORDERED: METOCLOPRAMIDE 5 MG/ML, 2ML IV ONE (20:00)
[2018-06-13] MEDS ORDERED: EPHEDRINE 50 MG/ML, 1ML ONE (21:45)
[2018-06-13] MEDS ORDERED: CEFAZOLIN 1,000 MG ONE (21:45)
[2018-06-13] MEDS ORDERED: BUPIVACAINE/PF 0.25% ONE (21:45)
[2018-06-13] MEDS ORDERED: WATER-INJECTION,STERILE 10 ML IV ONE (21:45)
[2018-06-13] MEDS ORDERED: PHENYLEPHRINE 10 MG/ML ONE (21:45)
[2018-06-13] MEDS ORDERED: OXYTOCIN 10 UNITS/ML, 1ML ONE (21:45)
[2018-06-13] MEDS ORDERED: LIDOCAINE-MPF 2% ,5ML ONE (21:45)
[2018-06-13] MEDS ORDERED: morphine SULFATE/PF 0.5 MG/ML, 10ML ONE (22:37)
[2018-06-13] MEDS: OXYTOCIN 30U/ 0.9% NaCL 500ML 500 ML IV SCH (23:27)
[2018-06-13] MEDS ORDERED: METOCLOPRAMIDE 5 MG/ML, 2ML IV PRN (23:30)
[2018-06-13] MEDS ORDERED: MISOPROSTOL 200 MCG TABLET PR PRN (23:30)
[2018-06-13] MEDS ORDERED: METHYLERGONOVINE 0.2 MG/ML IM PRN (23:30)
[2018-06-13] MEDS ORDERED: ACETAMINOPHEN 325 MG TABLET PO PRN (23:30)
[2018-06-13] MEDS ORDERED: SIMETHICONE 80 MG CHEW TAB PO PRN (23:30)
[2018-06-13] MEDS ORDERED: ONDANSETRON 2MG/ML, 2ML IV PRN (23:30)
[2018-06-13] MEDS ORDERED: morphine SULFATE 10 MG/ML, 1ML IVPush PRN (23:30)
[2018-06-13] MEDS ORDERED: OXYcodone/APAP 5/325MG TABLET PO PRN (23:30)
[2018-06-13] MEDS ORDERED: BISACODYL 10 MG SUPP PR PRN (23:30)
[2018-06-13] MEDS ORDERED: CARBOPROST TROMETHAMINE 250 MCG/ML, 1ML IM PRN (23:30)
[2018-06-14] MEDS ORDERED: KETOROLAC 30 MG/1 ML ONE (00:35)
[2018-06-14] MEDS: KETOROLAC 30 MG/1 ML IV SCH ×5 (00:36→23:29)
[2018-06-14 00:52] VITALS: BP 110/57
[2018-06-14 04:00] VITALS: BP 121/82
[2018-06-14 07:02] LABS: MEAN CORPUSCULAR HGB CONC 32.6 g/dL (32.4-35.8); MEAN CORPUSCULAR VOLUME 73.7 fL (80-100); MEAN PLATELET VOLUME 7.8 fL (7.4-10.4); PLATELET COUNT 279 x10^3/uL (130-400); RED BLOOD COUNT 3.79 x10^6/uL (3.82-5.3); RED CELL DISTRIBUTION WIDTH 16.3 % (9.6-15.2)
[2018-06-14 07:25] LABS: BASOPHILS % (AUTO) 0 % (0-1); EOSINOPHILS # (AUTO) 0.01 x10^3/uL (0-0.4); EOSINOPHILS % (AUTO) 0 % (1-7); LYMPHOCYTES # (AUTO) 1.43 x10^3/uL (1-3.4); LYMPHOCYTES % (AUTO) 11 % (22-44); MD SCAN; MONOCYTES % (AUTO) 5 % (2-9); NEUTROPHILS # (AUTO) 10.64 x10^3/uL (1.8-6.8); NEUTROPHILS % (AUTO) 84 % (42-75)
[2018-06-14] MEDS: LACTATED RINGERS 1,000 ML IV SCH ×3 (07:27→15:27)
[2018-06-14] MEDS: DOCUSATE 100 MG CAPSULE PO PRN (08:42)
[2018-06-14] MEDS: PRENATAL VIT/IRON/FA 1 EACH TABLET PO SCH (08:42)
[2018-06-14 08:45] VITALS: BP 111/74
[2018-06-14] MEDS: OXYTOCIN 30U/ 0.9% NaCL 500ML 500 ML IV SCH (09:27)
[2018-06-14 13:15] VITALS: BP 114/73
[2018-06-14 16:00] VITALS: BP 111/74
[2018-06-14] MEDS: OXYcodone/APAP 5/325MG TABLET PO PRN ×2 (17:23→23:29)
[2018-06-14 19:55] VITALS: BP 106/66
[2018-06-15] MEDS: OXYcodone/APAP 5/325MG TABLET PO PRN ×4 (05:36→23:45)
[2018-06-15] MEDS: KETOROLAC 30 MG/1 ML IV SCH ×3 (05:36→17:31)
[2018-06-15] MEDS: PRENATAL VIT/IRON/FA 1 EACH TABLET PO SCH (07:56)
[2018-06-15] MEDS: DOCUSATE 100 MG CAPSULE PO PRN ×2 (07:56→23:45)
[2018-06-15 08:05] VITALS: BP 115/74
[2018-06-15] MEDS ORDERED: IBUP-1222 PO (12:30)
[2018-06-15] MEDS ORDERED: OXYC-302 PO (12:32)
[2018-06-15] MEDS ORDERED: FERR325T23 PO (12:33)
[2018-06-15 19:20] VITALS: BP 118/75
[2018-06-15] MEDS: IBUPROFEN 600 MG TABLET PO PRN (23:45)
[2018-06-16] MEDS: OXYcodone/APAP 5/325MG TABLET PO PRN ×3 (05:24→20:20)
[2018-06-16] MEDS: IBUPROFEN 600 MG TABLET PO PRN ×3 (05:24→20:20)
[2018-06-16 07:00] VITALS: BP 111/76
[2018-06-16] MEDS: PRENATAL VIT/IRON/FA 1 EACH TABLET PO SCH (09:50)
[2018-06-16] MEDS: DOCUSATE 100 MG CAPSULE PO PRN ×2 (09:50→20:21)
[2018-06-16 19:25] VITALS: BP 115/76
[2018-06-17] MEDS: OXYcodone/APAP 5/325MG TABLET PO PRN ×3 (03:14→16:46)
[2018-06-17] MEDS: IBUPROFEN 600 MG TABLET PO PRN ×3 (03:14→16:46)
[2018-06-17 08:17] VITALS: BP 106/65
[2018-06-17] MEDS: PRENATAL VIT/IRON/FA 1 EACH TABLET PO SCH (10:30)
[2018-06-17] MEDS: DOCUSATE 100 MG CAPSULE PO PRN ×2 (10:31→16:46)
== END 2018-06-17 17:00 | disposition home or self-care (01) | DRG 766 ==
LOC: LDOP 14:36 → LDIP 15:00 → 2NW 06-14 00:40
PROVIDERS: ADMIT Obstetrics & Gynecology Gynecology; ATTEND Obstetrics & Gynecology Gynecology
PROC: 10D00Z1 Extraction of Products of Conception, Low, Open Approach (ICD-10-PCS; principal; 2018-06-13)
DX: O34.211 Maternal care for low transverse scar from previous cesarean delivery (principal); O76 Abnormality in fetal heart rate and rhythm complicating labor and delivery; F32.9 Major depressive disorder, single episode, unspecified; O99.344 Other mental disorders complicating childbirth; Z3A.37 37 weeks gestation of pregnancy; Z37.0 Single live birth; Z80.41 Family history of malignant neoplasm of ovary; Z53.29 Procedure and treatment not carried out because of patient's decision for other reasons
CPT/HCPCS: 36415; 80307; 82803; 84443; 85025; 86850; 86900; 87806; 93005; J0690; J1885; J2274; J3010; J3490; G0475; J2370; J2590; J7120

== ENCOUNTER 2018-07-03 09:47 | Emergency (ER) | payer MEDICAID ==
[~2018-07-03 09:47] MED LIST changes: +FERR325T23 PO
[2018-07-03] MEDS ORDERED: SODIUM CHLORIDE FLUSH 10ML SYR IVF ONE (10:30)
[2018-07-03 11:01] LABS: BASOPHILS # (AUTO) 0.04 x10^3/uL (0-0.1); BASOPHILS % (AUTO) 1 % (0-1); EOSINOPHILS # (AUTO) 0.06 x10^3/uL (0-0.4); EOSINOPHILS % (AUTO) 1 % (1-7); LYMPHOCYTES # (AUTO) 1.86 x10^3/uL (1-3.4); LYMPHOCYTES % (AUTO) 26 % (22-44); MD NO; MEAN CORPUSCULAR HEMOGLOBIN 23.7 pg (27.0-34.8); MEAN CORPUSCULAR HGB CONC 31.9 g/dL (32.4-35.8); MEAN CORPUSCULAR VOLUME 74.3 fL (80-100); MEAN PLATELET VOLUME 7.7 fL (7.4-10.4); MONOCYTES % (AUTO) 4 % (2-9); NEUTROPHILS # (AUTO) 5.04 x10^3/uL (1.8-6.8); NEUTROPHILS % (AUTO) 69 % (42-75); PLATELET COUNT 423 x10^3/uL (130-400); RED BLOOD COUNT 5.13 x10^6/uL (3.82-5.3); RED CELL DISTRIBUTION WIDTH 17.4 % (9.6-15.2)
[2018-07-03 11:13] LABS: ALANINE AMINOTRANSFERASE 16 U/L (12-78); ALBUMIN 3.5 g/dL (3.4-5.0); ANION GAP 10 mmol/L (5-15); CALCIUM 8.5 mg/dL (8.5-10.1); CHLORIDE 109 mmol/L (98-107); CREATININE 0.92 mg/dL (0.55-1.02)
[2018-07-03 11:15] LABS: ALKALINE PHOSPHATASE 123 U/L (45-117); BILIRUBIN,TOTAL 0.3 mg/dL (0.2-1.0); D-DIMER 0.29 ug/mlFEU (0.00-0.52); INTERNATIONAL NORMALIZED RATIO 1.04 (0.93-1.1); PROTHROMBIN TIME 10.7 Seconds (9.6-11.5); TOTAL PROTEIN 7.6 g/dL (6.4-8.2)
[2018-07-03 13:05] LABS: CULTURE INDICATED? YES; MICROSCOPIC INDICATED
[2018-07-03 13:27] VITALS: BP 92/60
== END 2018-07-03 13:54 | disposition home or self-care (01) ==
LOC: ED 10:32
DX: R55 Syncope and collapse (principal); R10.32 Left lower quadrant pain; R07.9 Chest pain, unspecified; Z90.49 Acquired absence of other specified parts of digestive tract
CPT/HCPCS: 36415; 71045; 80053; 81001; 85025; 85379; 85610; 85730; 87086; 93005; 99285